=== PATIENT | female | born 2000 | race American Indian/Alaskan Native ===

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

== ENCOUNTER 2023-10-28 23:15 | Emergency (ER) | payer BC, MEDICAID ==
[2023-10-29] MEDS: Albuterol/Ipratropium 3.0-0.5 MG/3 ML Neb Soln NEB ONE (00:23)
[2023-10-29] MEDS: Dexamethasone 4 MG/ML SDV PO ONE (00:24)
[2023-10-29 00:38] VITALS: BP 149/97; PULSE 112
[2023-10-29] MEDS: Take Home: Doxycycline 100 MG Cap, 4 Cap Pack PO ONE (01:14)
[2023-10-29] MEDS: Albuterol 6.7 GM Inhaler INH ONE (01:14)
== END 2023-10-29 02:00 | disposition home or self-care (01) ==
LOC: DL.ED 23:15
DX: J40 Bronchitis, not specified as acute or chronic (principal)
CPT/HCPCS: 36415; 71045; 87635; 87804; 87807; 99285; A9270; J8540; 99282; J7620-GY; U0002

== ENCOUNTER 2025-02-26 02:54 | Emergency (ER) | payer SELFPAY ==
[2025-02-26 03:44] LABS: BASOPHILS PERCENT AUTO 0.4 % (0.0-1.0); EOSINOPHILS PERCENT AUTO 2.4 % (1.0-3.0); LYMPHOCYTES PERCENT AUTO 24.7 % (20.5-50.1); MONOCYTES PERCENT AUTO 7.7 % (2-8); NEUTROPHILS PERCENT AUTO 64.8 % (42.2-75.2); PLATELET COUNT,PLT 298 10^3/uL (150-450); RED BLOOD CELL COUNT 5.23 10^6/uL (4.2-5.4); WHITE BLOOD CELL COUNT,WBC 10.9 10^3/uL (5.0-10.0)
[2025-02-26 04:13] LABS: ALANINE AMINOTRANSFERASE,ALT 461.0 U/L (14-59); ASPARTATE AMNIOTRANSFERASE,AST 481.0 U/L (15-37); BILIRUBIN TOTAL 0.4 mg/dL (0.2-1.0); BLOOD UREA NITROGEN,BUN 5.0 mg/dL (7-18); CARBON DIOXIDE,CO2 23.0 mmol/L (21-32); CHLORIDE,CL 107.0 mmol/L (98-107); CREATININE 0.56 mg/dL (0.55-1.02); EST CRCL DRUG DOSING (CG) 147.51 mL/min; GLUCOSE RANDOM 253.0 mg/dL (70-99); POTASSIUM,K 4.6 mmol/L (3.5-5.1); PROTEIN TOTAL,TP 7.9 g/dL (6.4-8.2); SODIUM,NA 142.0 mmol/L (136-145)
[2025-02-26 04:16] LABS: A/G RATIO 0.72; ESTIMATED GFR 132.0 mL/min (>=60); ETHANOL BLOOD MEDICAL 357.0 mg/dL (0)
[2025-02-26 05:01] VITALS: BP 107/57; PULSE 92
== END 2025-02-26 06:02 | disposition hospice, home (50) ==
LOC: DL.ED 02:54
DX: F10.120 Alcohol abuse with intoxication, uncomplicated (principal); Y90.8 Blood alcohol level of 240 mg/100 ml or more; W18.39XA Other fall on same level, initial encounter; Y93.89 Activity, other specified
CPT/HCPCS: 36415; 70450; 71250; 72125; 74176; 80053; 80307; 83735; 85025; 99284; J7030